=== PATIENT | female | born 1995 | race Caucasian/White ===

== ENCOUNTER 2018-06-23 22:10 | Emergency (ER) | payer OTHER ==
[2018-06-23 22:17] VITALS: BP 133/90
--- NOTE | 2018-06-23 23:43 | EDPHY ---
H & P Smoking Status: Heavy smoker Time Seen by Provider: 06/23/18 22:45 HPI/ROS: CHIEF COMPLAINT: Needlestick HISTORY OF PRESENT ILLNESS: 23-year-old female presents to the emergency department with possible bodily fluid exposure. The patient had an abrasion from a small likely insulin needle that scraped her right arm when she was caring out the trash at work. The incident happened earlier this evening. She was able to clean and dress the wound. She believes her tetanus shot is current. ROS: Denies numbness, tingling, pain, retained foreign body. (Ela Fiorerinjailyn Castillo) Past Medical/Surgical History: IUD (Greta Fiore) Social History: Works at [employer] (Greta Fiore) Physical Exam: On examination patient has a very small superficial abrasion to the anterior lateral aspect of the right mid humerus. No palpable bony tenderness. No surrounding redness or signs of infection or signs of cellulitis. (Ela Fiorerina Anna) Constitutional: Initial Vital Signs Temperature (C) 36.9 C 06/23/18 22:15 Heart Rate 97 06/23/18 22:15 Respiratory Rate 16 06/23/18 22:15 Blood Pressure 133/90 H 06/23/18 22:15 O2 Sat (%) 96 06/23/18 22:15 O2 Delivery Mode Room Air Allergies/Adverse Reactions: No Known Allergies Allergy (Unverified 06/23/18 22:18) Home Medications: Medication Instructions Recorded NK [No Known Home Meds] 06/23/18 MDM/Departure - MDM ED Course/Re-evaluation: 23-year-old female presents to the emergency department with possible needlestick. Laboratory studies have been drawn. She was given referral to Occupational Health as well as [facility]. I discussed post exposure prophylaxis with the patient and she declined. I think this is reasonable. She has the needle with her. She will return if he notices any signs or symptoms of infection or any other concerns. (AnitaelsiGreta Anna) PHYSICIAN DOCUMENTATION: The patient was evaluated and managed by the Physician Carbon Brusher Assembler. My co- signature indicates that I have reviewed this chart and I agree with the findings and plan of care as documented. I am the secondary supervising physician. (Gem North) - Depart Disposition: Home, Routine, Self-Care Clinical Impression: Needlestick injury accident with exposure to body fluid Condition: Good Instructions: Needle Stick Injuries (ED), Body Substance Exposure (ED) Additional Instructions: Follow-up with [facility] and occupational health for the results of your laboratory studies in 48-72 hours. Return to the emergency department if you have any other concerns. Referrals: [facility] (ED,. [Edm Groups for Call Sched] - As per Instructions Work Comp Ref/Restrictions [Outside] - As per Instructions
[2018-06-24 00:37] LABS: HEPATITIS C ANTIBODY TOTAL NEGATIVE (NEGATIVE); HIV TYPE 1 AND 2 NEGATIVE (NEGATIVE)
== END 2018-06-23 23:57 | disposition home or self-care (01) ==
DX: Z77.21 Contact with and (suspected) exposure to potentially hazardous body fluids (principal); W46.1XXA Contact with contaminated hypodermic needle, initial encounter
CPT/HCPCS: G0472